=== PATIENT | female | born 1995 | race American Indian/Alaskan Native ===

== ENCOUNTER 2017-04-01 12:30 | Emergency (ER) | payer SELFPAY ==
[2017-04-01 12:37] VITALS: BP 147/100
[2017-04-01] MEDS ORDERED: CLEOCIN IM ONE (13:32)
[2017-04-01] MEDS ORDERED: PERCOCET 5/325 PO ONE (13:32)
--- NOTE | 2017-04-01 13:32 | Emergency Department Report ---
- General Chief complaint: Extremity Injury, Lower Stated complaint: RT LEG INJURY Time Seen by Provider: 04/01/17 13:16 Source: patient, family Mode of arrival: Ambulatory Limitations: No Limitations - History of Present Illness Initial comments: Patient here complaining of painful, red swollen area to her right thigh for 1 week. She said it started off as a small bump but now it's gotten larger. She reports chills. She said she put she started putting warm compresses on. Denies any drainage. Reports that it's painful to touch. She is unsure of cause. She reports her pain is 9 out of 10 with movement and to touch and it's throbbing. Denies any respiratory symptoms. Denies any numbness or tingling to extremities. MD complaint: abscess/boil Onset/Timin -: week(s) Tetanus Up to Date: yes Location: RLE Severity: severe Severity scale (0 -10): 8 Quality: constant, other (throbbing) Consistency: constant Improves with: rest Worsens with: palpation, movement Context: other (unknown) Associated symptoms: fever, chills, athralgias Treatments Prior to Arrival: NSAID - Related Data Previous Rx's Medication Instructions Recorded Last Taken Type Acetaminophen/Codeine [Tylenol 1 tab PO Q6H PRN #20 tab 04/01/17 Unknown Rx /Codeine # 3 tab] Ibuprofen [Motrin] 600 mg PO Q8H PRN #21 tablet 04/01/17 Unknown Rx Sulfamethoxazole/Trimethoprim 1 each PO BID #20 tablet 04/01/17 Unknown Rx [Bactrim DS TAB] Allergies Allergy/AdvReac Type Severity Reaction Status Date / Time No Known Allergies Allergy Unverified 04/01/17 12:33 Abscess Boil HPI - HPI Chief Complaint: Extremity Injury, Lower Stated Complaint: RT LEG INJURY Time Seen by Provider: 04/01/17 13:16 Home Medications: Previous Rx's Medication Instructions Recorded Last Taken Type Acetaminophen/Codeine [Tylenol 1 tab PO Q6H PRN #20 tab 04/01/17 Unknown Rx /Codeine # 3 tab] Ibuprofen [Motrin] 600 mg PO Q8H PRN #21 tablet 04/01/17 Unknown Rx Sulfamethoxazole/Trimethoprim 1 each PO BID #20 tablet 04/01/17 Unknown Rx [Bactrim DS TAB] Allergies/Adverse Reactions: Allergies Allergy/AdvReac Type Severity Reaction Status Date / Time No Known Allergies Allergy Unverified 04/01/17 12:33 ED Review of Systems ROS: Stated complaint: RT LEG INJURY Other details as noted in HPI Comment: All other systems reviewed and negative Constitutional: chills, fever Eyes: denies: eye pain ENT: denies: throat pain, congestion Respiratory: no symptoms reported Cardiovascular: denies: chest pain, palpitations, edema, syncope Gastrointestinal: denies: abdominal pain, nausea, vomiting Musculoskeletal: arthralgia. denies: back pain, joint swelling Skin: other (redness/ swelling pain rt thigh) Neurological: denies: headache, numbness, paresthesias, confusion, abnormal gait , vertigo ED Past Medical Hx - Past Medical History Previous Medical History?: No - Surgical History Past Surgical History?: No - Family History Family history: hypertension - Social History Smoking Status: Never Smoker Substance Use Type: None - Medications Home Medications: Home Medications Medication Instructions Recorded Confirmed Last Taken Type Acetaminophen/Codeine [Tylenol 1 tab PO Q6H PRN #20 tab 04/01/17 Unknown Rx /Codeine # 3 tab] Ibuprofen [Motrin] 600 mg PO Q8H PRN #21 tablet 04/01/17 Unknown Rx Sulfamethoxazole/Trimethoprim 1 each PO BID #20 tablet 04/01/17 Unknown Rx [Bactrim DS TAB] ED Physical Exam - General Limitations: No Limitations General appearance: alert, in no apparent distress - Head Head exam: Present: atraumatic, normocephalic, normal inspection - Eye Eye exam: Present: normal appearance, PERRL, EOMI. Absent: periorbital swelling , periorbital tenderness Pupils: Present: normal accommodation - ENT ENT exam: Present: normal exam, normal orophraynx, mucous membranes moist, TM's normal bilaterally, normal external ear exam - Neck Neck exam: Present: normal inspection, full ROM. Absent: tenderness, meningismus, lymphadenopathy - Respiratory Respiratory exam: Present: normal lung sounds bilaterally. Absent: respiratory distress, chest wall tenderness - Cardiovascular Cardiovascular Exam: Present: normal rhythm, tachycardia, normal heart sounds - GI/Abdominal GI/Abdominal exam: Present: soft, normal bowel sounds. Absent: distended, tenderness - Extremities Exam Extremities exam: Present: normal inspection, full ROM, tenderness (Rt proximal thigh at cellulitic site), normal capillary refill. Absent: pedal edema, joint swelling, calf tenderness - Back Exam Back exam: Present: normal inspection, full ROM. Absent: tenderness, CVA tenderness (R), CVA tenderness (L), muscle spasm, paraspinal tenderness, vertebral tenderness, rash noted - Neurological Exam Neurological exam: Present: alert, oriented X3, normal gait, reflexes normal. Absent: motor sensory deficit - Psychiatric Psychiatric exam: Present: normal affect, normal mood - Skin Skin exam: Present: warm, dry, erythema - Expanded Skin Exam Expanded Type of lesion: Present: abscess Distribution of rash: RLE (Rt Proximal thigh/anterior) Description of rash: Present: size ( 13 X 4 cm), tenderness, erythematous, swelling, indurated. Absent: vesicular, blisters, discharge, fluctuant ED Course Vital Signs 04/01/17 04/01/17 04/01/17 12:33 13:49 13:51 Temperature 99.3 F Pulse Rate 123 H 100 H Respiratory 20 16 Rate Blood Pressure 147/100 O2 Sat by Pulse 98 Oximetry Vital Signs 04/01/17 04/01/17 04/01/17 12:33 13:49 13:51 Temperature 99.3 F Pulse Rate 123 H 100 H Respiratory 20 16 Rate Blood Pressure 147/100 O2 Sat by Pulse 98 Oximetry - Reevaluation(s) Reevaluation #1: 04/01/17 13:51 Patient given Percocet 5/325 mg 2 tablets in emergency room for right thigh pain along with clindamycin 600 mg injection. ED Medical Decision Making - Medical Decision Making ED course: Patient with cellulitis to right upper thigh with positive induration and no fluctuance.. Patient that I am unable to drain area because there is no fluctuance to indurated area. Patient was given clindamycin 600 mg IM and Percocet 5/325 mg 2 tablets by mouth for cellulitis and management of pain. I instructed her to return in 4 days for possible incision and drainage. I instructed patient that I will put her on antibiotic and she needs to put warm compresses to affected area 3-4 times a day to facilitate soft and then off indurated area. She voices understanding of discharge instruction and treatment plan and to return to the hospital in 4 days for possible incision and drainage. Patient given prescription for Tylenol 3, Motrin and Bactrim DS. Discharged home with her family in stable condition Critical care attestation.: If time is entered above; I have spent that time in minutes in the direct care of this critically ill patient, excluding procedure time. ED Disposition Clinical Impression: Cellulitis of right thigh, Arthralgia of right thigh, Fever in adult Disposition: DC-01 TO HOME OR SELFCARE Is pt being admited?: No Does the pt Need Aspirin: No Condition: Stable Instructions: Cellulitis (ED), Fever in Adults (ED) Additional Instructions: Please return to emergency room and 4 days for possible incision and draining. Please apply warm compresses to affected area 3-4 times a day. Please take antibiotic as prescribed. Please increase her fluid intake and keep affected area clean and dry Please do not drive or operate heavy machinery while taking and Tylenol 3 as this medication will cause drowsiness If you experience, increased redness, swelling, pain and/or fever please return to the emergency room JOSE D Prescriptions: Acetaminophen/Codeine [Tylenol /Codeine # 3 tab] 1 tab PO Q6H PRN #20 tab PRN Reason: Pain, Moderate (4-6) Ibuprofen [Motrin] 600 mg PO Q8H PRN #21 tablet PRN Reason: Pain Sulfamethoxazole/Trimethoprim [Bactrim DS TAB] 1 each PO BID #20 tablet Referrals: PRIMARY CARE, [Primary Care Provider] - 04/04/17 ED, ROOM [Other] - 04/05/17 Forms: Work/School Release Form(ED)
== END 2017-04-01 14:10 | disposition home or self-care (01) ==
LOC: ED 12:30
DX: L03.115 Cellulitis of right lower limb (principal); M79.651 Pain in right thigh
CPT/HCPCS: 96372

== ENCOUNTER 2017-05-04 20:37 | Emergency (ER) | payer SELFPAY ==
[2017-05-04 20:48] VITALS: BP 150/91
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
--- NOTE | 2017-05-05 18:17 | ED Elopement Review ---
ED Pt Elopement review - Results review Lab results: Laboratory Tests 05/04/17 20:52 HCG, Qual Negative - Call Back decision Pt Call Back Decision: No action required
== END 2017-05-05 00:17 | disposition left against medical advice (07) ==
LOC: ED 20:37
DX: Z53.21 Procedure and treatment not carried out due to patient leaving prior to being seen by health care provider (principal)
CPT/HCPCS: 36415; 70160; 84703

== ENCOUNTER 2017-08-02 15:18 | Emergency (ER) | payer SELFPAY ==
[2017-08-02] MEDS ORDERED: MARCAINE 0.5% INFILTRATI ONE (15:35)
[2017-08-02] MEDS ORDERED: BOOSTRIX IM ONE (15:35)
--- NOTE | 2017-08-02 15:35 | Emergency Department Report ---
Stated Complaint: LEFT TOE INFECTION Time Seen by Provider: 08/02/17 15:32 - HPI History of Present Illness: PT c/o L great toe pain x week - ROS Review of Systems: + swelling to L great toe + drainage from L great toe - Exam Physical Exam: PT looks well, non toxic L great toe nail lateral nail fold with edema MSE screening note: Focused history and physical exam performed. Due to findings the following was ordered: meds ED Disposition for MSE Condition: Stable
[2017-08-02] MEDS ORDERED: TORADOL IM ONE (19:00)
[2017-08-02] MEDS ORDERED: XYLOCAINE 2% INFILTRATI ONE (19:00)
--- NOTE | 2017-08-02 20:41 | Emergency Department Report ---
ED General Adult HPI - General Chief complaint: Extremity Injury, Lower Stated complaint: LEFT TOE INFECTION Time Seen by Provider: 08/02/17 15:32 Source: patient Mode of arrival: Ambulatory Limitations: No Limitations - History of Present Illness Initial comments: Patient is a 22-year-old female presents due to left great toe pain times one week, patient states that she has swelling and drainage from the left toenail. Patient denies any fever or chills. Patient denies any injury. 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 MD Complaint: left great toe pain Onset/Timin -: week(s) Location: lower extremity (left great toe) Radiation: non-radiation Severity scale (0 -10): 3 Quality: aching Consistency: constant Improves with: none Worsens with: other (palpation) Associated Symptoms: denies other symptoms Treatments Prior to Arrival: none - Related Data Previous Rx's Medication Instructions Recorded Last Taken Type Acetaminophen/Codeine [Tylenol 1 tab PO Q6H PRN #20 tab 04/01/17 Unknown Rx /Codeine # 3 tab] Ibuprofen [Motrin] 600 mg PO Q8H PRN #21 tablet 04/01/17 Unknown Rx Sulfamethoxazole/Trimethoprim 1 each PO BID #20 tablet 04/01/17 Unknown Rx [Bactrim DS TAB] Acetaminophen with Codeine 1 each PO Q6HR PRN #15 tablet 08/02/17 Unknown Rx [Acetaminophen-Codeine #2 TAB] Cephalexin [Keflex] 500 mg PO Q12HR #14 cap 08/02/17 Unknown Rx Ibuprofen 800 mg PO Q8HR PRN #30 tablet 08/02/17 Unknown Rx Allergies Allergy/AdvReac Type Severity Reaction Status Date / Time No Known Allergies Allergy Unverified 04/01/17 12:33 ED Review of Systems ROS: Stated complaint: LEFT TOE INFECTION Other details as noted in HPI Comment: All other systems reviewed and negative Constitutional: no symptoms reported. denies: chills, diaphoresis, fever, malaise, weakness Respiratory: no symptoms reported Musculoskeletal: other (left great toe pain) Skin: denies: rash, lesions Neurological: denies: headache, weakness Psychiatric: denies: anxiety, depression ED Past Medical Hx - Past Medical History Previous Medical History?: No - Surgical History Past Surgical History?: No - Social History Smoking Status: Never Smoker Substance Use Type: None - Medications Home Medications: Home Medications Medication Instructions Recorded Confirmed Last Taken Type Acetaminophen/Codeine [Tylenol 1 tab PO Q6H PRN #20 tab 04/01/17 Unknown Rx /Codeine # 3 tab] Ibuprofen [Motrin] 600 mg PO Q8H PRN #21 tablet 04/01/17 Unknown Rx Sulfamethoxazole/Trimethoprim 1 each PO BID #20 tablet 04/01/17 Unknown Rx [Bactrim DS TAB] Acetaminophen with Codeine 1 each PO Q6HR PRN #15 tablet 08/02/17 Unknown Rx [Acetaminophen-Codeine #2 TAB] Cephalexin [Keflex] 500 mg PO Q12HR #14 cap 08/02/17 Unknown Rx Ibuprofen 800 mg PO Q8HR PRN #30 tablet 08/02/17 Unknown Rx ED Physical Exam - General Limitations: No Limitations General appearance: alert, in no apparent distress - Head Head exam: Present: atraumatic, normocephalic, normal inspection - Eye Eye exam: Present: normal appearance Pupils: Present: normal accommodation - Neurological Exam Neurological exam: Present: alert, oriented X3 - Skin Skin exam: Present: other (patient has fluctuation on the left first toe lateral cuticle area. There was purulent drainage.) ED Course Vital Signs 08/02/17 15:35 Temperature 98.5 F Pulse Rate 100 H Respiratory 18 Rate Blood Pressure 145/90 O2 Sat by Pulse 97 Oximetry - Procedure Description Procedures done: Left great toe was cleaned with Betadine, digital block was performed, the digital block was partial so lidocaine had to be injected directly into the area of fluctuation on an that the nailbed. The left 1st toe nail was cut in half and the lateral side was removed with a hemostat and scissors. Bacitracin was applied to the exposed nail matrix, Xeroform gauze was applied, pressure dressing was applied. Patient tolerated procedure well. ED Medical Decision Making - Medical Decision Making Patient was in no acute distress, ingrown nail was removed from the left great toe. Pressure dressing was applied. Patient was placed on Keflex. Patient was given information on follow-up with a manager of finance for any complications. - Differential Diagnosis ingrown nail, abscess, cellulitis Critical care attestation.: If time is entered above; I have spent that time in minutes in the direct care of this critically ill patient, excluding procedure time. ED Disposition Clinical Impression: Ingrown left greater toenail Disposition: DC-01 TO HOME OR SELFCARE Is pt being admited?: No Does the pt Need Aspirin: No Condition: Good Instructions: Ingrown Nail (ED) Additional Instructions: Take Keflex 500 mg twice a day for 7 days. Take ibuprofen 800 mg every 8 hours as needed for moderate pain. Take Tylenol with codeine one tablet every 6 hours as needed for severe pain. Clean yellow left great toe daily with soap and water apply Neosporin nonadhesive dressing. Follow up with the provided manager of finance for any complications. Prescriptions: Acetaminophen with Codeine [Acetaminophen-Codeine #2 TAB] 1 each PO Q6HR PRN # 15 tablet PRN Reason: Pain Cephalexin [Keflex] 500 mg PO Q12HR #14 cap Ibuprofen 800 mg PO Q8HR PRN #30 tablet PRN Reason: Pain Referrals: PRIMARY CARE, [Primary Care Provider] - 3-5 Days HODA LAMBERT DPM [Staff Physician] - 3-5 Days Time of Disposition: 20:50
[2017-08-02 21:03] VITALS: BP 142/95
== END 2017-08-02 21:03 | disposition home or self-care (01) ==
LOC: ED 15:18
DX: L60.0 Ingrowing nail (principal)
CPT/HCPCS: 11730; 96372; 99282; J1885